=== PATIENT | female | born 1975 | race Caucasian/White ===

== ENCOUNTER → 2023-10-20 | Outpatient (CLI) | payer SELFPAY ==
[~2023-10-20] MED LIST: BENTYL10 MG PO; CLON1 PO; CYCL10; FURO40; HYDR1TAB94 PO; METO50ER PO; VICODIN 5-3001 EACH PO; Zofran4 MG PO; [UNRECOGNIZED DRUG - REMARK]
[2023-11-04 08:42] LABS: HPV HIGH RISK BY TMA Not Detected; HPV SOURCE Cervical
== END | disposition home or self-care (01) ==
LOC: LAB SHORT 10:50 → LAB 10:50
PROVIDERS: Obstetrics & Gynecology
DX: Z01.419 Encounter for gynecological examination (general) (routine) without abnormal findings (principal)
CPT/HCPCS: 87624; G0123